=== PATIENT | female | born 1950 | race Caucasian/White ===

== ENCOUNTER → 2021-12-25 | Outpatient (CLI) | payer OTHER, MEDICARE, SELFPAY ==
--- NOTE | 2021-12-25 14:25 | CT_ITS ---
STUDY: CT MAXILLOFACIAL SINUSES REASON FOR EXAM: Female, 71 years old. SINUSITIS RADIATION DOSAGE (If Supplied By Facility): CTDIvol = ( 33.06 ) mGy, DLP = ( 821.45 ) mGycm TECHNIQUE: The patient was scanned in a multi detector CT scanner. High resolution axial imaging was performed without the administration of intravenous contrast material. Sagittal and coronal images were reconstructed. Individualized dose optimization techniques were used for this CT. COMPARISON: None. FINDINGS: FRONTAL SINUSES: Normal aeration, without mucosal inflammatory disease. ETHMOIDAL SINUSES: Partial opacification of the ethmoid sinuses bilaterally. MAXILLARY SINUSES: Nodular mucosal thickening of the maxillary sinuses bilaterally. SPHENOIDAL SINUSES: Partial opacification of the sphenoid sinus. There is compromise of the bilateral maxillary infundibula due to mucosal hypertrophy. Normal bilateral middle turbinates. Normal bilateral inferior turbinates. There is a mild left sided nasal septal deviation, but without a nasal septal spur. There is patency of the bilateral nasal airways. The visualized osseous structures are normal. The visualized bilateral orbital contents are normal. CT/Sinus/Facial Bone IMPRESSION: Ethmoid, maxillary and sphenoid sinusitis. Compromise of the bilateral maxillary infundibula due to mucosal hypertrophy. Electronically Signed: Lukas Love MD at 15:00 EDT ,
== END | disposition home or self-care (01) ==
LOC: CT 14:20
PROVIDERS: Referring Provider Otolaryngology; Visit Provider Otolaryngology
DX: J32.9 Chronic sinusitis, unspecified (principal)
CPT/HCPCS: 70486